=== PATIENT | male | born 1985 | race Caucasian/White ===

== ENCOUNTER → 2016-10-14 | Outpatient (CLI) | payer OTHER ==
--- NOTE | 2016-10-14 08:31 | CT ---
EXAMINATION TYPE: CT abdomen wo/w con DATE OF EXAM: 10/14/2016 COMPARISON: 02/03/2015 HISTORY: 31-year-old male pain, gallbladder disease. TECHNIQUE: Contiguous axial scanning of the abdomen before and after administration of 100 ml Omnipaq ue 300 IV contrast. Delayed images through the kidneys and coronal/sagittal reconstructions performe d. CT DLP: 678.7 mGycm Automated exposure control for dose reduction was used. FINDINGS: The heart is normal size. Partially visualized calcified granuloma right middle lobe, axial image 1. Lung bases otherwise clear without pleural effusion. Liver is upper limits of normal in size measuring 17.6 cm craniocaudal. No focal liver lesion or bili mary grace ductal dilatation. Portal venous system is patent. Gallbladder, adrenal glands, kidneys, spleen, and pancreas within normal limits. No dilated small bowel, free fluid, or free air. There is mild to moderate stool burden without pericolonic inflammatory change. The previously seen i nflammation along the distal transverse colon has resolved. Scattered nonenlarged and mildly enlarged mesenteric lymph nodes are noted particularly in the mid an d left abdomen measuring up to 9 mm, for example, coronal image 39. This has slightly increased from 2015. Bones: No osseous destructive process. IMPRESSION: 1. LIVER AT THE UPPER LIMITS OF NORMAL IN SIZE. 2. NO APPRECIABLE CHOLELITHIASIS BY CT. NOTE THAT ULTRASOUND HAS HIGHER SENSITIVITY. 3. SCATTERED BORDERLINE AND MILDLY ENLARGED MESENTERIC LYMPH NODES MEASURING UP TO 9 MM, SLIGHTLY INC REASED FROM 2015. FINDINGS PROBABLY REACTIVE/POST INFLAMMATORY SUCH DUE TO MESENTERIC ADENITIS. CL INICALLY CORRELATE TO THE NEED FOR ANY FOLLOW-UP.
== END | disposition home or self-care (01) ==
LOC: RADCTMAIN 07:17
PROVIDERS: ATTEND Pediatrics
DX: R59.0 Localized enlarged lymph nodes (principal); K82.9 Disease of gallbladder, unspecified
CPT/HCPCS: 74170; Q9967

== ENCOUNTER 2024-07-16 05:51 | Day surgery (SDC) | payer OTHER ==
[2024-07-16] MEDS: IV FLUID CONTINUATION 1,000 ML IV ONE (06:28)
[2024-07-16] MEDS: LACTATED RINGERS 1,000 ML IV SCH (06:28)
[2024-07-16] MEDS: ONDANSETRON 4 MG/2 ML VIAL IVP ONE (06:34)
[2024-07-16] MEDS: DEXAMETHASONE SOD PHOSPHATE 4 MG/ML 1 ML VIAL IV ONE (06:34)
[2024-07-16] MEDS: SCOPOLAMINE 1 MG/72 HR PATCH TRANSDERM ONE (06:34)
[2024-07-16] MEDS ORDERED: HYDROmorphone 0.5 MG/0.5 ML SYRINGE IVP PRN (07:00)
[2024-07-16] MEDS ORDERED: MIDAZOLAM 2 MG/2 ML VIAL IV PRN (07:00)
[2024-07-16] MEDS: CITRIC ACID-SODIUM CITRATE 15 ML CUP PO PRN (07:14)
[2024-07-16] MEDS ORDERED: MIDAZOLAM 2 MG/2 ML VIAL ONE (07:25)
[2024-07-16] MEDS ORDERED: PROPOFOL 10 MG/ML 20 ML VIAL IV ONE (07:25)
[2024-07-16] MEDS ORDERED: LIDOCAINE 1% INJ 10MG/ML (20 ML MDV) ONE (07:25)
[2024-07-16] MEDS ORDERED: fentaNYL (PF) 50 MCG/ML 2 ML AMP ONE (07:25)
[2024-07-16] MEDS: BUPIVACAINE (PF) 0.5% 30 ML VIAL SQ ONE (07:58)
--- NOTE | 2024-07-16 08:39 | P.OP ---
Date of Procedure: 07/16/24 Preoperative Diagnosis: Displaced fracture proximal phalanx left great toe Postoperative Diagnosis: Displaced fracture proximal phalanx left great toe Procedure(s) Performed: Closed reduction with percutaneous fixation proximal phalanx fracture left great toe Implants: Cindy 2.5 mm headless screws x 2 Anesthesia: PAIGEA Surgeon: Reynaldo Shane Estimated Blood Loss (ml): 1 Pathology: none sent Condition: stable Disposition: PACU Description of Procedure: The patient was brought into the op room and placed on table in the supine position. Timeout was taken to confirm correct patient identifiers, correct laterality of surgery, and correct procedure. Once all staff in the room was in agreement with the timeout, the patient was induced and placed under general anesthesia. A well-padded tourniquet was placed on the left ankle. 20 cc 0.5% Marcaine was injected as a proximal great toe block. Prior to prepping and draping the foot for surgery, close reduction was attempted on the digit. There was a palpable click during attempted reduction. The fluoroscopy showed that there was near anatomic alignment of the fracture. The head was still slightly dorsally rotated. However with plantarflexion of the inner phalangeal joint, the fracture was anatomically reduced. At that point the foot was prepped and draped in the usual manner. Holding the phalangeal joint plantarflexed and using fluoroscopy to confirm that the fracture had moved, wires were placed at the distal lateral head of the proximal phalanx and advanced across the fracture obliquely to exit the opposite cortex. Fluoroscopy confirmed the proper position of the first wire. A second wire was placed on the opposite side on the medial aspect of the head and driven out the opposite cortex of that the screws were crossing at the fracture site. Fluoroscopy confirmed the proper place of both wires. Small stab incisions were made at the entry points of the wires. Countersinking was performed. The screws were inserted over the wires and advanced until the heads engage the bone of the proximal phalanx and that fixation was bicortical. Final fluoroscopic imaging showed anatomic reduction of the fracture with good compression noted at the fracture site. All hardware was properly positioned. The guidewires were removed and the incisions irrigated. Dermal glue was used to close the incisions and then covered with Steri-Strips. Dry sterile dressings applied to the great toe. The patient tolerated the above procedure and anesthesia well. The patient left to recovery with vital signs stable.
[2024-07-16 08:48] VITALS: TEMP 97
[2024-07-16 09:55] VITALS: BP 132/87; PULSE 90; RESP 16
== END 2024-07-16 10:25 | disposition home or self-care (01) ==
LOC: OR 05:51
PROVIDERS: ATTEND Podiatrist
DX: S92.412A Displaced fracture of proximal phalanx of left great toe, initial encounter for closed fracture (principal); E78.5 Hyperlipidemia, unspecified; K21.9 Gastro-esophageal reflux disease without esophagitis; Z79.02 Long term (current) use of antithrombotics/antiplatelets; Z79.899 Other long term (current) drug therapy; X58.XXXA Exposure to other specified factors, initial encounter
CPT/HCPCS: 28496; C1713; J2250; J1100; J0690; J2405; J2003; J3010; J2704; J0665